=== PATIENT | female | born 1990 | race Caucasian/White ===

== ENCOUNTER 2018-01-19 05:30 | Day surgery (SDC) | payer MEDICAID, SELFPAY ==
[~2018-01-19] VITALS: Ht 170.2 cm; Wt 109.9 kg
[~2018-01-19 05:30] MED LIST: NORE1TAB28 PO; TRAM50TA4 PO
[2018-01-19] MEDS ORDERED: SODIUM CHLORIDE 0.9% 1000ML 1,000 ML IV ONE (06:02)
[2018-01-19 06:28] VITALS: BP 127/70
[2018-01-19 09:00] VITALS: BP 110/58
== END 2018-01-19 09:30 | disposition home or self-care (01) ==
LOC: ENDO 05:30 → DAH 05:30 → ENDO 09:30
PROVIDERS: ATTEND Internal Medicine
DX: D50.8 Other iron deficiency anemias (principal); K29.70 Gastritis, unspecified, without bleeding; K57.30 Diverticulosis of large intestine without perforation or abscess without bleeding; K64.0 First degree hemorrhoids; Z79.899 Other long term (current) drug therapy; F41.8 Other specified anxiety disorders; Z98.890 Other specified postprocedural states; Z88.2 Allergy status to sulfonamides; Z88.6 Allergy status to analgesic agent; Z88.5 Allergy status to narcotic agent; Z97.5 Presence of (intrauterine) contraceptive device
CPT/HCPCS: 43239; 45380; 81025; 88305; 88312; 88342; A4606; J7030